=== PATIENT | male | born 1975 | race Caucasian/White ===

== ENCOUNTER 2016-06-29 09:55 | Inpatient (IN) | payer OTHER ==
[2016-06-14 11:17] VITALS: BMI 27.0
--- NOTE | 2016-06-14 11:44 | PAT Medication Instructions ---
Service Date Jun 14, 2016. Current Home Medication List No Active Prescriptions or Reported Meds Medication Instructions For Your Scheduled Surgery No Active Prescriptions or Reported Meds-- Please contact PAT department if starting any new medications prior to surgery. If you have any questions please call us at [phone] (Chandni Knowles PA-C) or [phone] or [phone]
--- NOTE | 2016-06-14 12:37 | DIAGNOSTIC IMAGING REPORT ---
CHEST 2 VIEWS ROUTINE CLINICAL HISTORY: Preoperative evaluation. COMPARISON STUDY: No previous studies for comparison. FINDINGS: Lung volumes are normal. There is no pneumothorax or pleural effusion. Cardiac size is normal. Mediastinal contours are normal. There is no evidence of pulmonary edema. IMPRESSION: No acute cardiopulmonary findings. Electronically signed by: Zacarias Parra M.D. 06/14/2016 12:35 PM Dictated Date/Time: 06/14/2016 12:34 PM
[2016-06-14 12:51] LABS: BASO % 0.4 %; BASO ABS # 0.02 K/uL (0-0.2); COMPLETE YES; HEMATOCRIT 42.7 % (42-52); IG% 0.2 %; LYMPH % 37.4 %; LYMPH ABS # 2.04 K/uL (1.2-3.4); MEAN CELL VOLUME 84.7 fL (80-100); MEAN CORPUSCULAR HEMOGLOBIN 30.6 pg (25-34); MEAN CORPUSCULAR HGB CONC 36.1 g/dl (32-36); MEAN PLATELET VOLUME 10.1 fL (7.4-10.4); MONO % 5.5 %; NEUT % 51.5 %; PLATELET COUNT 214 K/uL (130-400); RED BLOOD COUNT 5.04 M/uL (4.7-6.1); WHITE BLOOD COUNT 5.45 K/uL (4.8-10.8)
[2016-06-14 13:02] LABS: URINE APPEARANCE CLEAR (CLEAR); URINE BILIRUBIN NEG (NEG); URINE COLOR YELLOW; URINE NITRITE NEG (NEG); URINE SPECIFIC GRAVITY 1.021 (1.000-1.030); UROBILINOGEN NEG (NEG)
[2016-06-14 13:13] LABS: BUN/CREATININE RATIO 22.9 (10-20); CALCIUM 9.1 mg/dl (8.5-10.1); CREATININE 0.95 mg/dl (0.60-1.40); POTASSIUM 4.3 mmol/L (3.5-5.1)
[2016-06-14 13:18] LABS: MANUAL MICROSCOPIC REQUIRED? NO; REVIEW REQ? NO
[2016-06-29] VITALS (7 sets, daily range): BP systolic 132–147; BP diastolic 76–94; PULSE 60–92; TEMP 36.3–36.8; O2SAT 93–99; Ht 177.8 cm; Wt 86.2 kg
[~2016-06-29] VITALS: Ht 177.8 cm; Wt 86.2 kg
[~2016-06-29 09:55] MED LIST: CEFAZOLIN 2000 MG/60 ML D5W IV SCH; LACTATED RINGER'S 1000ML 1,000 ML IV SCH
[2016-06-29] MEDS ORDERED: MEPERIDINE HCL 25 MG/ML CARP IV PRN (10:30)
[2016-06-29] MEDS ORDERED: MoRPHine SULFATE 10 MG/ML CARP/VIAL IV PRN (10:30)
[2016-06-29] MEDS ORDERED: LABETALOL HCL IV 5 MG/ML 20ML IV PRN (10:30)
[2016-06-29] MEDS ORDERED: PHENYLEPHRINE 100MCG/ML 5ML SYR IV PRN (10:30)
[2016-06-29] MEDS ORDERED: ONDANSETRON INJ 2 MG/ML 2 ML VIAL IV PRN ×2 (10:30→14:30)
[2016-06-29] MEDS ORDERED: EpHEDrine SULFATE INJ 50 MG/ML AMP IV PRN (10:30)
[2016-06-29] MEDS ORDERED: FLUMAZENIL 0.1 MG/1 ML 10 ML VIAL IV PRN (10:30)
[2016-06-29] MEDS ORDERED: NALOXONE HCL 0.4 MG/1 ML VIAL/CARP IV PRN (10:30)
[2016-06-29] MEDS ORDERED: ATROPINE SULFATE 0.1 MG/ML 5ML SYR IV PRN (10:30)
--- NOTE | 2016-06-29 11:39 | History & Physical Bridge Note ---
H&P Re-Evaluation Bridge Note: I have examined the patient, reviewed the History & Physical and in the interval since the performance of the History & Physical I have noted the following changes of clinical significance: No changes noted
[2016-06-29] MEDS ORDERED: MANNITOL 25% 50 ML VIAL ONE (11:55)
[2016-06-29] MEDS ORDERED: LARYING-O-JET KIT (LTA) EXT ONE ×2 (11:57)
[2016-06-29] MEDS ORDERED: PROPOFOL IV EMULSION 10 MG/ML 20 ML VIAL IV ONE (11:57)
[2016-06-29] MEDS ORDERED: NEOSTIGMINE METHYLSULFATE 5 MG/5 ML SYR ONE (11:57)
[2016-06-29] MEDS ORDERED: DEXAMETHASONE SOD INJ 4 MG/ML VIAL ONE (11:57)
[2016-06-29] MEDS ORDERED: GLYCOPYRROLATE INJ 0.2 MG/ML VIAL ONE (11:57)
[2016-06-29] MEDS ORDERED: LIDOCAINE HCL 2% 2 ML VIAL (20MG/ML) ONE (11:57)
[2016-06-29] MEDS ORDERED: ONDANSETRON INJ 2 MG/ML 2 ML VIAL ONE (11:57)
[2016-06-29] MEDS ORDERED: MIDAZOLAM HCL 1 MG/ML 2ML VIAL ONE (11:57)
[2016-06-29] MEDS ORDERED: FENTANYL CITRATE INJ 50 MCG/1 ML 2 ML VIAL ONE (11:57)
[2016-06-29] MEDS ORDERED: ROCURONIUM BROMIDE 10 MG/ML 5 ML VIAL ONE (11:57)
[2016-06-29] MEDS ORDERED: HYDROmorphone INJ 2 MG/ML SYR/VIAL ONE (12:45)
[2016-06-29] MEDS ORDERED: FLOSEAL HEMOSTATIC MATRIX 10ML TOP ONE (13:42)
[2016-06-29] MEDS ORDERED: TISSEEL FIBRIN SEALANT 10ML TOP ONE (13:42)
[2016-06-29] MEDS ORDERED: SURGICEL ABSORB HEMOSTAT 2IN X 14IN TOP ONE (13:42)
[2016-06-29] MEDS ORDERED: BUPIVACAINE 0.5 % 5 MG/1 ML MPF 30ML VIAL INJ ONE (14:03)
--- NOTE | 2016-06-29 14:14 | [facility] Post Operative Brief Note ---
Immediate Operative Summary Operative Date Jun 29, 2016. Pre-Operative Diagnosis Right Renal Lesion Post-Operative Diagnosis Right Renal Lesion Procedure(s) Performed Right Laparoscopic Partial Nephrectomy Robotic Assist Surgeon Dr. Qasim Keane Coffee Attendant Surgeon(s) Dr. Gt Mukherjee Estimated Blood Loss 100 ml Findings Small, right lower pole renal mass - lateral, exophytic. Single artery and single vein. Specimens A. Right Renal Mass Drains ROGER; posada Anesthesia Gen Complication(s) None Disposition Recovery Room / PACU (stable)
[2016-06-29] MEDS: HYDROmorphone INJ 1 MG/ML SYR IV PRN ×4 (14:23→14:38)
[2016-06-29] MEDS ORDERED: MoRPHine SULFATE 2 MG/ML CARP IV PRN (14:30)
[2016-06-29] MEDS ORDERED: ACETAMINOPHEN/CODEINE 300/30MG TAB PO PRN (14:30)
[2016-06-29] MEDS ORDERED: ACETAMINOPHEN 325 MG TAB PO PRN (14:30)
[2016-06-29 14:41] LABS: BASO % 0.1 %; BASO ABS # 0.01 K/uL (0-0.2); EOS % 0.1 %; HEMATOCRIT 40.8 % (42-52); IG% 0.3 %; LYMPH % 4.4 %; LYMPH ABS # 0.66 K/uL (1.2-3.4); MEAN CORPUSCULAR HEMOGLOBIN 30.5 pg (25-34); MEAN PLATELET VOLUME 9.6 fL (7.4-10.4); MONO % 2.3 %; NEUT % 92.8 %; PLATELET COUNT 175 K/uL (130-400); RED BLOOD COUNT 4.86 M/uL (4.7-6.1); WHITE BLOOD COUNT 14.86 K/uL (4.8-10.8)
--- NOTE | 2016-06-29 14:44 | Anesthesiology Progress Note ---
Anesthesia Post Op Note Date & Time Jun 29, 2016 at 14:43 Vital Signs Pain Intensity: 4 Vital Signs Past 12 Hours Date Time Temp Pulse Resp B/P Pulse Ox O2 Delivery O2 Flow Rate FiO2 06/29/16 14:25 82 17 153/98 100 Mask 10 06/29/16 14:16 36.0 82 12 161/103 100 Mask 10 06/29/16 10:14 36.8 91 18 133/83 99 Notes Mental Status: alert / awake / arousable, participated in evaluation Pt Amnestic to Procedure: Yes Nausea / Vomiting: adequately controlled Pain: adequately controlled Airway Patency, RR, SpO2: stable & adequate BP & HR: stable & adequate Hydration State: stable & adequate Anesthetic Complications: no major complications apparent
[2016-06-29 14:46] LABS: COMPLETE YES; MEAN CORPUSCULAR HGB CONC 36.3 g/dl (32-36)
[2016-06-29 15:08] LABS: BUN/CREATININE RATIO 14.2 (10-20); CALCIUM 8.2 mg/dl (8.5-10.1); CREATININE 1.2 mg/dl (0.60-1.40); POTASSIUM 4.2 mmol/L (3.5-5.1)
--- NOTE | 2016-06-29 16:06 | OPERATIVE REPORT ---
DATE OF OPERATION: 06/29/2016 PREOPERATIVE DIAGNOSIS: Right renal mass. POSTOPERATIVE DIAGNOSIS: Right renal mass. PROCEDURE PERFORMED: Robotic assisted laparoscopic right partial nephrectomy. ANESTHESIA: General. ESTIMATED BLOOD LOSS: 100 mL. URINE OUTPUT: Not recorded. SPECIMEN: Right renal mass for routine pathology. PRIMARY SURGEON: Dr. Qasim Keane. ASSISTING SURGEON: Dr. Gt Mukherjee. DRAINS: 1. ROGER drain. 2. Curtis catheter. OPERATION AND FINDINGS: DESCRIPTION OF THE PROCEDURE: Momo Morales was identified in the preoperative holding area. Appropriate informed consents were reviewed and completed and the patient was transported to the operating suite. Upon arrival, he received appropriate preoperative antibiotics in the form of Ancef. Adequate general anesthesia was achieved and the patient was placed in left side down, right side up lateral decubitus position where he was padded and braced in standard fashion. I began the case by placing a Veress needle under the right costal margin and insufflating the abdomen to 15 mmHg. I then placed a 12 mm Visiport utilizing a 10 mm 0 degree laparoscope into the abdomen at the rectus border just above the level of the umbilicus. Inspection of the abdomen at that time revealed no evidence of significant adhesive disease with clear abdominal wall and no obstructions to other planned port sites. I subsequently placed robotic port just under the costal margin approximately 8 cm superior to the camera port and an additional robotic port approximately 8 cm inferior and 4 cm lateral to the camera port. Two 12 mm licensed loan officer assistant ports were placed in the midline, 1 just supraumbilically and another approximately 5 cm below the umbilicus. All these ports were watched as we entered the abdomen without difficulty. Inspection at that time revealed that the patient's colon was already very medialized. We were able to visualize the underlying duodenum as well as the kidney itself as well as the tumor visualized protruding through the very thin Gerota's fascia. I began by incising some of the lateral attachments that made up the limited amount of tissue remaining from the white line of Toldt and further medialized the colon. I was able to identify the gonadal vein at that time and ultimately the lateral edge of the IVC. We followed the lateral edge of the IVC up which in turn kocherized the duodenum as we approached the hilum. We immediately encountered the renal vein and just inferior to the renal vein, we encountered the renal artery. After dissecting circumferentially around the renal vein and noting one branch moving posterior to the renal artery we skeletonized the renal artery. In the midst of this dissection, a small tear was created in the upper posterior aspect of the artery. At this time, I was able to grasp the proximal aspect of the artery with my fenestrated bipolar and stopped the active bleeding. We then placed a bulldog clamp at that time immediately to maintain control. This was a very small hole however, we felt it was going to be prohibitory not to control the artery at that time. with the bulldog in place, I placed a 4-0 Prolene stitch into the abdomen and performed a rsjfiw-aq-kzmfv stitch over the whole closing it entirely. At that time we moved quickly to leave the bulldog in place and exposed the renal mass. The mass was exposed circumferentially as was blanched kidney around it. I then excised the mass en bloc and placed it in the lower abdomen. There was no gross evidence of violation of the mass and no gross evidence of any tumor left behind in the resection bed. We then utilized 2 separate V-Loc stitches to perform a running anastomosis utilizing a sliding clip technique. Three stitches in total were placed with excellent hemostasis at that time. I then returned to the renal hilum and flashed the bulldog clamp on the renal artery. There was no evidence of any continued active bleeding. Warm ischemia time measured at 17 minutes total. We then removed the bulldog entirely. Inspection of the resection site revealed no continued active bleeding at that site either. We placed FloSeal coagulant across the renorrhaphy as well as around the hilum followed by a small sheet of Surgicel over the resection site and Tisseel placed to both the resection site and the hilum. I then reapproximated Gerota's fascia with an additional V-Loc stitch. A ROGER drain was guided into the left lateral most port and the specimen was collected in an EndoCatch bag placed through the lower 12 mm midline licensed loan officer assistant port. We dropped the pneumo pressure to 5 and confirmed excellent hemostasis. The kidney did pink appropriately and there did not appear to be significant narrowing of the artery at the level of my [id number]-ur-clhnb stitch. At that time we withdrew all ports and extracted the specimen through the lower licensed loan officer assistant port. Fascia was closed with a 0 Vicryl stitch in [id number] fashion for the camera port and the upper 12 mm licensed loan officer assistant port was closed in a running fashion with 0 Vicryl for the extraction port. Skin was then closed with 4-0 Monocryl in all locations and infiltrated with 0.5% Marcaine. ROGER drain was sutured in place with a 0 silk. At that time the case was concluded. The patient was extubated and taken to the PACU in stable condition. There were no complications. I attest to the content of the Intraoperative Record and any orders documented therein. Any exceptio ns are noted below.
[2016-06-29] MEDS: LACTATED RINGER'S 1000ML 1,000 ML IV SCH (16:51)
[2016-06-29] MEDS: CEFAZOLIN IV 2,000 MG in DEXTROSE 5% 50ML 50 ML IV SCH (19:59)
[2016-06-30] MEDS: LACTATED RINGER'S 1000ML 1,000 ML IV SCH ×3 (00:11→12:35)
[2016-06-30] MEDS: ACETAMINOPHEN/CODEINE 300/30MG TAB PO PRN ×3 (00:11→12:27)
[2016-06-30 03:20] VITALS: BP 134/81; PULSE 54; TEMP 36.5; O2SAT 97
[2016-06-30] MEDS: CEFAZOLIN IV 2,000 MG in DEXTROSE 5% 50ML 50 ML IV SCH (03:21)
[2016-06-30 07:05] LABS: BASO % 0.1 %; BASO ABS # 0.01 K/uL (0-0.2); COMPLETE YES; EOS % 0.2 %; HEMATOCRIT 39.3 % (42-52); IG% 0.2 %; LYMPH % 16.4 %; LYMPH ABS # 1.45 K/uL (1.2-3.4); MEAN CELL VOLUME 84.5 fL (80-100); MEAN CORPUSCULAR HEMOGLOBIN 30.3 pg (25-34); MEAN CORPUSCULAR HGB CONC 35.9 g/dl (32-36); MEAN PLATELET VOLUME 10.3 fL (7.4-10.4); MONO % 10.3 %; NEUT % 72.8 %; PLATELET COUNT 196 K/uL (130-400); RED BLOOD COUNT 4.65 M/uL (4.7-6.1); WHITE BLOOD COUNT 8.83 K/uL (4.8-10.8)
[2016-06-30 07:39] LABS: BUN/CREATININE RATIO 9.7 (10-20); CALCIUM 8.3 mg/dl (8.5-10.1); CREATININE 1.1 mg/dl (0.60-1.40); POTASSIUM 3.8 mmol/L (3.5-5.1)
[2016-06-30 07:45] VITALS: BP 141/72; PULSE 72; TEMP 36.8; O2SAT 96
--- NOTE | 2016-06-30 08:20 | Anesthesiology Progress Note ---
Anesthesia Post Op Note Date & Time Jun 30, 2016 at 08:21 Vital Signs Pain Intensity: 4.0 Vital Signs Past 12 Hours Date Time Temp Pulse Resp B/P Pulse Ox O2 Delivery O2 Flow Rate FiO2 06/30/16 07:45 36.8 72 15 141/72 96 Room Air 06/30/16 03:20 36.5 54 16 134/81 97 Room Air 06/30/16 00:00 Room Air 06/29/16 23:29 36.8 92 16 147/76 96 Room Air Notes Mental Status: alert / awake / arousable, participated in evaluation Pt Amnestic to Procedure: Yes Nausea / Vomiting: adequately controlled Pain: adequately controlled Airway Patency, RR, SpO2: stable & adequate BP & HR: stable & adequate Hydration State: stable & adequate Anesthetic Complications: no major complications apparent
[2016-06-30] MEDS ORDERED: ACET-749 PO (08:40)
[2016-06-30] MEDS ORDERED: DOCU-94 PO (08:40)
--- NOTE | 2016-06-30 08:49 | Progress Note ---
Progress Note S: Doing very well - minimal pain - has been OOB and ambulating - tolerating clears O: 06/30/16 06:25 Red Blood Count 4.65, Mean Corpuscular Volume 84.5, Mean Corpuscular Hemoglobin 30.3, Mean Corpuscular Hemoglobin Concent 35.9, Mean Platelet Volume 10.3, Neutrophils (%) (Auto) 72.8, Lymphocytes (%) (Auto) 16.4, Monocytes (%) (Auto) 10.3, Eosinophils (%) (Auto) 0.2, Basophils (%) (Auto) 0.1, Neutrophils # (Auto ) 6.42, Lymphocytes # (Auto) 1.45, Monocytes # (Auto) 0.91, Eosinophils # (Auto ) 0.02, Basophils # (Auto) 0.01 06/30/16 06:25 Test 06/30/16 06:25 White Blood Count 8.83 K/uL (4.8-10.8) Red Blood Count 4.65 M/uL (4.7-6.1) Hemoglobin 14.1 g/dL (14.0-18.0) Hematocrit 39.3 % (42-52) Mean Corpuscular Volume 84.5 fL (80-100) Mean Corpuscular Hemoglobin 30.3 pg (25-34) Mean Corpuscular Hemoglobin Concent 35.9 g/dl (32-36) Platelet Count 196 K/uL (130-400) Mean Platelet Volume 10.3 fL (7.4-10.4) Neutrophils (%) (Auto) 72.8 % Lymphocytes (%) (Auto) 16.4 % Monocytes (%) (Auto) 10.3 % Eosinophils (%) (Auto) 0.2 % Basophils (%) (Auto) 0.1 % Neutrophils # (Auto) 6.42 K/uL (1.4-6.5) Lymphocytes # (Auto) 1.45 K/uL (1.2-3.4) Monocytes # (Auto) 0.91 K/uL (0.11-0.59) Eosinophils # (Auto) 0.02 K/uL (0-0.5) Basophils # (Auto) 0.01 K/uL (0-0.2) RDW Standard Deviation 39.4 fL (36.4-46.3) RDW Coefficient of Variation 12.9 % (11.5-14.5) Immature Granulocyte % (Auto) 0.2 % Immature Granulocyte # (Auto) 0.02 K/uL (0.00-0.02) Anion Gap 9.0 mmol/L (3-11) Est Creatinine Clear Calc Drug Dose 93.1 ml/min Estimated GFR () 97.5 Estimated GFR (Non- 84.1 BUN/Creatinine Ratio 9.7 (10-20) Calcium Level 8.3 mg/dl (8.5-10.1) Vital Signs Past 12 Hours Date Time Temp Pulse Resp B/P Pulse Ox O2 Delivery O2 Flow Rate FiO2 06/30/16 07:45 36.8 72 15 141/72 96 Room Air 06/30/16 07:30 Room Air 06/30/16 03:20 36.5 54 16 134/81 97 Room Air 06/30/16 00:00 Room Air 06/29/16 23:29 36.8 92 16 147/76 96 Room Air NAD AAOx3 no resp distress RRR abd soft - incisions appropriate - ROGER serosang - posada clear A/p: POD #1 s/p R robotic partial nephrectomy - doing very well - labs appropriate - feeling well - advance diet - catheter out - plan for possible d/c home later today if he continues to progress well
--- NOTE | 2016-06-30 09:30 | Discharge Instructions ---
Discharge Instructions Admission Reason for Admission: Right Renal Mass Discharge Discharge Diagnosis / Problem: Right renal mass Discharge Goals Goal(s): Improve function, Improve disease control, Prevent Disease Progression Activity Recommendations Activity Limitations: per Instructions/Follow-up section . Instructions / Follow-Up Instructions / Follow-Up 1. Do not lift >15lbs x 6 weeks. 2. No heavy exercise x 6 weeks. You may engage in light activity such as walking and stairs as tolerated. 3. Do not drive x [address] while taking narcotics. 4. Follow-up as scheduled. Please call our office at [phone] if you need to reschedule for any reason. . Current Hospital Diet Hospital Diet(s): Regular Diet Discharge Diet Recommended Diet: Regular Diet Procedures Procedures Performed: Right Laparoscopic Partial Nephrectomy Robotic Assist Pending Studies Studies pending at discharge: no Medical Emergencies . Who to Call and When: Medical Emergencies: If at any time you feel your situation is an emergency, please call 911 immediately. . Non-Emergent Contact Non-Emergency issues call your: Primary Care Provider, Urologist Call Non-Emergent contact if: temperature is above 101.5 . . "Provider Documentation" section prepared by Mindy Mayer. VTE Core Measure Inpt VTE Proph given/why not?: Unfractionated heparin SQ, SCD's
[2016-06-30 12:51] VITALS: BP 141/72; PULSE 72; TEMP 36.8; O2SAT 96
[2016-06-30 13:01] VITALS: O2SAT 97
--- NOTE | 2016-07-06 13:03 | Discharge Summary ---
Discharge Summary Admission Date: Jun 29, 2016 at 10:15 Discharge Date: Jun 30, 2016 Discharge Disposition: Home Principal Diagnosis: Right renal cell carcinoma Procedures: Right robotic assisted laparoscopic partial nephrectomy Medication Reconciliation New Medications: Acetaminophen/Codeine (Tylenol W/Codeine #3) 300 Mg/30 Mg Tab 2 TAB PO Q6 PRN for Pain, #30 TAB Docusate Sodium (Colace) 100 Mg Cap 1 CAP PO BID for 30 Days, #60 CAP 2 Refills Hospital Course Admitted for a right robotic partial nephrectomy. Details of the procedure as dictated previously in the operative report, however, in summary, he tolerated this procedure extremely well. He was transferred to the floor in stable condition. Catheter was removed on the morning of post operative day #1, his ROGER was removed several hours later. Labs remained stable, he was ambulatory, pain was controlled, he was tolerating a diet and was discharged home in stable condition. Total time spent on discharge = This includes examination of the patient, discharge planning, medication reconciliation, and communication with other providers. Discharge Instructions Please see previously written d/c instructions
== END 2016-06-30 13:37 | disposition home or self-care (01) | DRG 661 ==
LOC: ENRESERVDT → ENRESERVTM → C.ACU 09:55 → C.MSN 10:15
PROVIDERS: ADMIT Urology; ATTEND Urology
PROC: 8E0W4CZ Robotic Assisted Procedure of Trunk Region, Percutaneous Endoscopic Approach (ICD-10-PCS; 2016-06-29)
PROC: 0TB04ZZ Excision of Right Kidney, Percutaneous Endoscopic Approach (ICD-10-PCS; principal; 2016-06-29 11:45)
DX: N28.89 Other specified disorders of kidney and ureter (principal); J30.2 Other seasonal allergic rhinitis; Z90.49 Acquired absence of other specified parts of digestive tract; Z84.89 Family history of other specified conditions; Z83.3 Family history of diabetes mellitus

== ENCOUNTER → 2016-08-25 | Outpatient (CLI) | payer OTHER ==
[~2016-08-25] MED LIST changes: +ACET-749 PO; -CEFAZOLIN 2000 MG/60 ML D5W IV SCH; +DOCU-94 PO; -LACTATED RINGER'S 1000ML 1,000 ML IV SCH; +OPTIRAY 320 IV PRN
[2016-08-25 07:54] LABS: BLOOD UREA NITROGEN 19 mg/dl (7-18); BUN/CREATININE RATIO 17.5 (10-20)
--- NOTE | 2016-08-25 08:51 | DIAGNOSTIC IMAGING REPORT ---
CT SCAN OF THE ABDOMEN AND PELVIS COMBO RENAL MASS PROTOCOL CLINICAL HISTORY: Renal cell carcinoma status post right partial nephrectomy. COMPARISON STUDY: Abdominal CT dated 09/03/2015. Abdominal MRI dated 03/03/2016. TECHNIQUE: Before and following the IV administration of 90 cc of Optiray 320, CT scan of the abdomen and pelvis is performed from the lung bases to the proximal femora. The abdominal CT is performed utilizing the renal mass protocol. Images are reviewed in the axial, sagittal, and coronal planes. IV contrast was administered without complication. Automated dose control exposure was utilized. CT DOSE: 1660.66 mGycm FINDINGS: Lung bases: The heart is normal in size and without pericardial effusion. The lung bases are clear noting dependent atelectasis. Liver: The contrast-enhanced liver is normal in size, contour, and attenuation. There is no intrahepatic biliary ductal dilatation. The hepatic veins and portal veins are patent. Gallbladder: Surgically absent. Spleen: Normal in size and attenuation. Pancreas: Unremarkable. Adrenal glands: Unremarkable. Kidneys: The contrast enhanced kidneys are normal in size and without hydronephrosis. There are postoperative changes consistent with partial nephrectomy involving the lower pole of the right kidney. Trace perinephric stranding is noted. There is no evidence of recurrent or residual enhancing soft tissue at the resection margin. No enhancing mass lesion is seen in either kidney on today's examination. The kidneys enhance and excrete symmetrically. There is no evidence of urothelial lesion within the renal pelvis bilaterally or along the course of the ureters. Abdominal vasculature: The abdominal aorta is normal in course and caliber. Bowel: The small bowel and colon are normal in course and caliber. There is mild colonic diverticulosis without CT evidence of acute diverticulitis. The appendix is well-visualized and normal. Peritoneum: There is no intraperitoneal free air or abdominal ascites. A midline surgical scar is noted. Lymphadenopathy: None. Pelvic viscera: The bladder, prostate, and seminal vesicles are normal as imaged. Skeletal structures: No lytic or blastic lesions are seen. IMPRESSION: 1. There are postoperative changes from partial nephrectomy of the lower pole of the right kidney. 2. There is no evidence of recurrent or or residual enhancing mass lesion at the resection margin. No enhancing renal mass is identified on today's examination. 3. There is no evidence of metastatic disease in the abdomen or pelvis. 4. Additional findings as above. Electronically signed by: Gabino Prabhakar M.D. 08/25/2016 8:50 AM Dictated Date/Time: 08/25/2016 8:37 AM
== END | disposition home or self-care (01) ==
LOC: C.CTS 07:18
PROVIDERS: ATTEND Nurse Practitioner Family
DX: C64.9 Malignant neoplasm of unspecified kidney, except renal pelvis (principal); Z90.5 Acquired absence of kidney

== ENCOUNTER → 2017-09-28 | Outpatient (CLI) | payer BC ==
[~2017-09-28] MED LIST changes: -ACET-749 PO
--- NOTE | 2017-09-28 10:52 | DIAGNOSTIC IMAGING REPORT ---
CT SCAN OF THE ABDOMEN AND PELVIS COMBO RENAL MASS PROTOCOL CLINICAL HISTORY: Renal cell carcinoma status post right partial nephrectomy. COMPARISON STUDY: Abdominal CT dictated 08/25/2016. TECHNIQUE: Before and following the IV administration of 119 cc of Optiray 320, CT scan of the abdomen and pelvis is performed from the lung bases to the proximal femora. The abdominal CT is performed utilizing the renal mass protocol. Images are reviewed in the axial, sagittal, and coronal planes. IV contrast was administered without complication. A dose lowering protocol was utilized adhering to the principles of ALARA. CT DOSE: 1560.40 mGycm FINDINGS: Lung bases: The heart is normal in size and without pericardial effusion. The lung bases are clear noting dependent atelectasis. Liver: The contrast-enhanced liver is normal in size, contour, and attenuation. There is minimal central intrahepatic biliary ductal dilatation. The hepatic veins and portal veins are patent. A 10 mm hypodensity in the right lobe seen on image #82 likely represents a small hemangioma. Gallbladder: Surgically absent. Spleen: Normal in size and attenuation. Pancreas: Unremarkable. Adrenal glands: Unremarkable. Kidneys: The contrast enhanced kidneys are normal in size and without hydronephrosis. No renal calculi are identified on the unenhanced series. There are postoperative changes consistent with partial nephrectomy involving the lower pole of the right kidney. There is no evidence of recurrent or residual enhancing soft tissue at the resection margin. No enhancing mass lesion is seen in either kidney on today's examination. The kidneys enhance and excrete symmetrically. There is no evidence of urothelial lesion within the renal pelvis bilaterally or along the course of the ureters. Abdominal vasculature: The abdominal aorta is normal in course and caliber. Bowel: No bowel obstruction is identified. There is mild colonic diverticulosis without CT evidence of acute diverticulitis. The appendix is well-visualized and normal. Peritoneum: There is no intraperitoneal free air or abdominal ascites. A midline surgical scar is noted. Lymphadenopathy: None. Pelvic viscera: The prostate and seminal vesicles are normal as imaged. The bladder wall appears mildly thickened and trabeculated suggesting chronic outlet obstruction. Skeletal structures: No lytic or blastic lesions are seen. IMPRESSION: 1. Again seen are postoperative changes from partial nephrectomy of the lower pole of the right kidney. 2. There is no evidence of recurrent or or residual enhancing mass lesion at the resection margin. No enhancing renal mass is identified on today's examination. 3. There is no evidence of metastatic disease in the abdomen or pelvis. 4. Mild colonic diverticulosis without CT evidence of acute diverticulitis. 5. Additional findings as above. Electronically signed by: Gabino Prabhakar M.D. 09/28/2017 10:51 AM Dictated Date/Time: 09/28/2017 10:45 AM
== END | disposition home or self-care (01) ==
LOC: C.CTS 10:15
PROVIDERS: ATTEND Urology
DX: C64.9 Malignant neoplasm of unspecified kidney, except renal pelvis (principal)